=== PATIENT | male | born 1965 | race Caucasian/White ===

== ENCOUNTER → 2024-08-17 16:51 | Outpatient (REF) | payer OTHER, SELFPAY | LOC: RAD 16:51 | PROVIDERS: ATTENDING PHYSICIAN Specialist; FAMILY PHYSICIAN Family Medicine | DX: N20.0 Calculus of kidney (principal) | CPT/HCPCS: 74018 ==

== ENCOUNTER 2024-08-28 06:51 | Day surgery (SDC) | payer OTHER, SELFPAY ==
[2024-08-24 09:08] LABS: Hemoglobin 13.9 g/dL (13.0-18.0); Mean Corp Hgb Conc. 34.8 g/dL (33.0-37.0); Mean Corpuscular Hgb 32.1 pg (27.0-31.0); Mean Corpuscular Volume 92.4 fL (80.0-94.0); Mean Platelet Volume 11.3 fL (7.4-10.4); Platelet Count 239 10^3/uL (130-400); Red Blood Cell Count 4.33 10^6/uL (4.70-6.10); Red Cell Dist. Width 12.4 % (11.5-14.5); White Blood Cell Count 7.2 10^3/uL (4.8-10.8)
[2024-08-24 09:18] LABS: Blood Urea Nitrogen 20 mg/dl (9-20); Calcium 8.8 mg/dl (8.4-10.2); Carbon Dioxide 27 mmol/L (22-30); Chloride 102 mmol/L (98-107); Glucose 196 mg/dl (70-99); Potassium 4.7 mmol/L (3.5-5.1); Sodium 140 mmol/L (135-145); eGFR > 60.00
[2024-08-24 13:13] VITALS: BMI 37.4
[2024-08-28] VITALS (8 sets, daily range): BP systolic 113–139; BP diastolic 70–88; BMI 37.4
[2024-08-28 10:32] LABS: Glucose - Point of Care 170 mg/dl (70-99)
[2024-08-28] MEDS: NORMOSOL-R/PLASMALYTE-A 1000 IV (10:34)
[2024-08-28 12:35] LABS: Glucose - Point of Care 152 mg/dl (70-99)
[2024-08-28 14:19] LABS: Glucose - Point of Care 146 mg/dl (70-99)
[2024-08-28] MEDS: Pyridium 200 MG PO (14:52)
== END 2024-08-28 15:30 | disposition home or self-care (01) ==
LOC: SDS 06:51
PROVIDERS: ATTENDING PHYSICIAN Specialist; FAMILY PHYSICIAN Family Medicine
PROC: 0T778DZ Dilation of Left Ureter with Intraluminal Device, Via Natural or Artificial Opening Endoscopic (ICD-10-PCS; 2024-08-28)
PROC: 0TC48ZZ Extirpation of Matter from Left Kidney Pelvis, Via Natural or Artificial Opening Endoscopic (ICD-10-PCS; 2024-08-28)
DX: N20.2 Calculus of kidney with calculus of ureter (principal)
CPT/HCPCS: 52356; 36415; 74018; 76000; 80048; 82365; 82962; 85027; 93005; A4300; C1894; C2617

== ENCOUNTER → 2024-11-07 16:52 | Outpatient (REF) | payer OTHER, SELFPAY | LOC: HWRAD 16:52 | PROVIDERS: ATTENDING PHYSICIAN Specialist; FAMILY PHYSICIAN Family Medicine | DX: N20.0 Calculus of kidney (principal) | CPT/HCPCS: 74018 ==

== ENCOUNTER → 2025-05-27 16:34 | Outpatient (REF) | payer OTHER, SELFPAY ==
[2025-05-27 17:20] LABS: Hematocrit 39.1 % (39.0-52.0); Hemoglobin 13.2 g/dL (13.0-18.0); Mean Corp Hgb Conc. 33.8 g/dL (33.0-37.0); Mean Corpuscular Volume 91.6 fL (80.0-94.0); Nucleated Red Blood Cells % 0 % (-); Platelet Count 249 10^3/uL (130-400); Red Cell Dist. Width 12.2 % (11.5-14.5)
[2025-05-27 17:41] LABS: ALT (SGPT) 28 U/L (0-50); AST (SGOT) 23 U/L (17-59); Albumin 4.4 g/dl (3.5-5.0); Alkaline Phosphatase 78 U/L (38-126); Blood Urea Nitrogen 20 mg/dl (9-20); Calcium 9.2 mg/dl (8.4-10.2); Carbon Dioxide 28 mmol/L (22-30); Chloride 106 mmol/L (98-107); Glucose 111 mg/dl (70-99); Potassium 4.7 mmol/L (3.5-5.1); Sodium 141 mmol/L (135-145); Total Protein 7.1 g/dl (6.3-8.2); eGFR 45.86
== END ==
LOC: REG 16:34
PROVIDERS: ATTENDING PHYSICIAN Internal Medicine Cardiovascular Disease; FAMILY PHYSICIAN Family Medicine
DX: R07.2 Precordial pain (principal); R06.02 Shortness of breath; I20.0 Unstable angina; I10 Essential (primary) hypertension
CPT/HCPCS: 36415; 80053; 85025

== ENCOUNTER 2025-05-29 09:53 | Day surgery (SDC) | payer OTHER, SELFPAY ==
[2025-05-29] VITALS (16 sets, daily range): BP systolic 95–127; BP diastolic 59–88; BMI 38.4
[2025-05-29 10:45] LABS: Glucose - Point of Care 99 mg/dl (70-99)
--- NOTE | 2025-05-29 12:00 | ITS.CL.CATH ---
[employer] - Catheterization
Cardiac Catheterization
Procedure Report:
CARDIAC CATHETERIZATION REPORT
Date of Procedure: 05/29/2025
Referring: Will Chris M.D.
INDICATION: Multiple coronary artery disease risk factors, resting chest discomfort concerning for unstable angina.
PROCEDURE:
1. Left heart catheterization.
2. Coronary angiography.
3. IFR of the proximal RCA.
A total of 41 minutes of procedural/moderate sedation was utilized. An independent director of medical services was present to assist with and help manage the patient's level of consciousness and physiologic status.
ACCESS:
1. 6 Canadian right artery using a modified Seldinger technique delete.
CATHETERS:
1. 5 Canadian JR4.
2. 5 Canadian JL 3.5.
3. 6 [place] JR4 guiding catheter.
HEMODYNAMIC DATA
Weight (kg): 125.0
AO (s/d/x, mmHg): 84/65/74
LV (s/x mmHg): 85/15
AV gradient (x, mmHg): None.
LEFT VENTRICULOGRAPHY: Not performed.
CORONARY ANGIOGRAPHY
Dominance: Right.
Left Main: Normal size, bifurcating vessel. There is no coronary artery disease.
LAD: Large size vessel giving rise to 1 significant diagonal. There is no coronary artery disease.
Ramus: Congenitally absent.
Circumflex: Large size, nondominant vessel giving rise to several small obtuse marginals before terminating as a large left posterolateral branch. There is no coronary artery disease.
RCA: Normal size, dominant vessel. There is a 40% lesion in the proximal vessel. There is sluggish washout of the injected contrast with some swirling immediately distal to the 40% lesion.
INTERVENTION(S)
1. Successful IFR of the 40% proximal RCA lesion demonstrating nonocclusive coronary artery disease (IFR = 0.99).
Narrative:
The decision was made to perform physiologic testing. The diagnostic catheter was removed over a wire and exchanged for a(n) 6 [place] JR4 guiding catheter. The guiding catheter was advanced into the ascending aorta and seated in the right coronary
artery. Additional heparin was given to obtain an ACT greater than 250 seconds. An iFR wire was zeroed outside of the body, then inserted into the guiding sheath. The wire was advanced and the transducer was normalized just outside of the guiding
catheter tip. The wire was advanced into the mid RCA, beyond the 40% proximal RCA lesion. Three iFR measurements were taken. The lesion was determined to be nonocclusive (0.99).
Closure Device: Vascular band.
Radiation (mGy): 909
DAP (cm2.Gy): 46.9
Fluoroscopy time (minutes): 6.8
CONCLUSIONS
1. Right dominant circulation with a nonocclusive 40% lesion in the proximal RCA (iFR = 0.99).
2. Significant improvement in contrast washout after intracoronary dose of nitroglycerin, consistent with endothelial dysfunction/microvascular angina.
3. Mildly elevated filling pressures (LVEDP = 15 mmHg at 125.0 kg).
RECOMMENDATIONS:
1. Expectant management after cardiac catheterization via right radial approach.
2. Limited weight bearing on the right wrist for one week.
3. Aggressive primary prevention with high-dose, high potency statin. Increase atorvastatin to 40 mg daily. Goal LDL <55.
4. Treatment of potential endothelial dysfunction/microvascular angina with uptitration of antianginal therapy. Discontinue hydrochlorothiazide and start amlodipine 2.5 mg daily.
5. Optimization of other cardiovascular risk factors including diabetic management, obesity, etc.
6. Stable for outpatient follow-up.
Copy to: Will Chris M.D., Rudy Haddad M.D.
Erlin Barrera DO, FACC, FACP
[2025-05-29 12:08] LABS: ACT-LR - POC 271 Seconds (116-155)
[2025-05-29 12:27] LABS: Glucose - Point of Care 105 mg/dl (70-99)
== END 2025-05-29 15:45 | disposition home or self-care (01) ==
LOC: CATH 09:53
PROVIDERS: ATTENDING PHYSICIAN Internal Medicine Cardiovascular Disease; FAMILY PHYSICIAN Family Medicine; OTHER PHYSICIAN Internal Medicine Cardiovascular Disease
DX: I25.10 Atherosclerotic heart disease of native coronary artery without angina pectoris (principal); R07.89 Other chest pain; E11.40 Type 2 diabetes mellitus with diabetic neuropathy, unspecified; E78.2 Mixed hyperlipidemia; I10 Essential (primary) hypertension; G47.33 Obstructive sleep apnea (adult) (pediatric); N20.0 Calculus of kidney; Z79.85 Long-term (current) use of injectable non-insulin antidiabetic drugs; Z79.84 Long term (current) use of oral hypoglycemic drugs; Z79.899 Other long term (current) drug therapy
CPT/HCPCS: 93799; 99152; 99153; 82962; 85347; 93458; C1769; C1894; Q9967

== ENCOUNTER → 2025-06-14 10:58 | Outpatient (REF) | payer OTHER, SELFPAY ==
[2025-06-14 12:35] LABS: Blood Urea Nitrogen 17 mg/dl (9-20); Calcium 9.1 mg/dl (8.4-10.2); Carbon Dioxide 27 mmol/L (22-30); Chloride 103 mmol/L (98-107); Glucose 120 mg/dl (70-99); Potassium 4.6 mmol/L (3.5-5.1); Sodium 136 mmol/L (135-145); Uric Acid 5.7 mg/dl (3.5-8.5); eGFR > 60.00
== END ==
LOC: RAD 10:58
PROVIDERS: ATTENDING PHYSICIAN Nurse Practitioner; FAMILY PHYSICIAN Family Medicine; REFERRING PHYSICIAN Family Medicine
DX: I10 Essential (primary) hypertension (principal); N20.0 Calculus of kidney
CPT/HCPCS: 36415; 74018; 80048; 84550

== ENCOUNTER → 2025-07-10 08:11 | Outpatient (REF) | payer OTHER, SELFPAY | LOC: RCS 08:11 | PROVIDERS: ATTENDING PHYSICIAN Nurse Practitioner; FAMILY PHYSICIAN Family Medicine | DX: R06.02 Shortness of breath (principal) | CPT/HCPCS: 93306; Q9950 ==

== ENCOUNTER → 2025-07-18 11:27 | Outpatient (REF) | payer OTHER, SELFPAY | LOC: RAD 11:27 | PROVIDERS: ATTENDING PHYSICIAN Internal Medicine Cardiovascular Disease; FAMILY PHYSICIAN Family Medicine | DX: I51.9 Heart disease, unspecified (principal) | CPT/HCPCS: 71275; Q9967 ==